=== PATIENT | male | born 1975 | race African-American/Black ===

== ENCOUNTER 2017-09-20 18:48 | Emergency (ER) | payer OTHER ==
[~2017-09-20] VITALS: Ht 177.8 cm; Wt 89.5 kg
[2017-09-20] MEDS ORDERED: ALBU8HFA IH (19:04)
[2017-09-20] MEDS ORDERED: ALBUTEROL SULFATE 2.5 MG/0.5 ML NEB SOLUTION NEB ONE (21:15)
[2017-09-20] MEDS ORDERED: 0.9% SODIUM CHLORIDE 5 ML NEB SOLUTION NEB ONE (21:17)
[2017-09-20] MEDS ORDERED: ALBUTEROL SULFATE HFA 90 MCG/PUFF 8 GM INHALER IH ONE (22:30)
[2017-09-20 22:37] VITALS: BP 138/77
== END 2017-09-20 23:08 | disposition home or self-care (01) ==
LOC: EMS 18:52
DX: J45.909 Unspecified asthma, uncomplicated (principal); F17.210 Nicotine dependence, cigarettes, uncomplicated
CPT/HCPCS: 94640; 99284; J7613; J3535